=== PATIENT | female | born 1965 | race Caucasian/White ===

== ENCOUNTER 2022-03-19 10:00 | Outpatient (RCR) | payer BC, SELFPAY | END 2022-05-27 08:28 | disposition home or self-care (01) | PROVIDERS: PCP Physician Assistant; Visit Provider Physician Assistant | DX: M25.572 Pain in left ankle and joints of left foot (principal); M25.461 Effusion, right knee; Z51.89 Encounter for other specified aftercare | CPT/HCPCS: 97110; 97162; 97760 ==